=== PATIENT | male | born 1990 | race American Indian/Alaskan Native ===

== ENCOUNTER 2019-05-07 00:51 | Emergency (ER) | payer MEDICAID ==
--- NOTE | 2019-05-07 01:30 | Emergency Department Report ---
ED General Adult HPI - General Stated complaint: DIZZINESS Time Seen by Provider: 05/07/19 01:08 Source: patient, RN notes reviewed Limitations: No Limitations - History of Present Illness Initial comments: 18-year-old male with a past medical history of schizophrenia presents after being brought to emergency department by family after patient was found to be foaming at the mouth. Family states that patient is less responsive than his usual baseline as well. Patient had no falls or seizure per family. Them he states the patient is compliant with his Haldol and benztropine appendectomy. Patient has had no over those medications per the family as they state that they have the [address] His medications to him. Patient last feel the medications on April 10 where he had 30 pills, history in the bottle per mother. Patient per mother has had no new medications and father denies any illicit drug use of the patient. Patient has had no recent fever as well. Severity scale (0 -10): 0 - Related Data Home Medications Medication Instructions Recorded Confirmed Last Taken Benztropine 1 mg PO DAILY 05/07/19 05/07/19 05/06/19 Haloperidol 5 mg PO DAILY 05/07/19 05/07/19 05/06/19 Haloperidol 50 mg IM QMONTH 05/07/19 05/07/19 04/25/19 Allergies Allergy/AdvReac Type Severity Reaction Status Date / Time No Known Allergies Allergy Unverified 05/07/19 01:13 ED Review of Systems ROS: Stated complaint: DIZZINESS Other details as noted in HPI Comment: Unobtainable due to pts medical conditions ED Past Medical Hx - Medications Home Medications: Home Medications Medication Instructions Recorded Confirmed Last Taken Type Benztropine 1 mg PO DAILY 05/07/19 05/07/19 05/06/19 History Haloperidol 5 mg PO DAILY 05/07/19 05/07/19 05/06/19 History Haloperidol 50 mg IM QMONTH 05/07/19 05/07/19 04/25/19 History ED Physical Exam - General General appearance: other (responsive to voice ) - Head Head exam: Present: atraumatic, normocephalic - Eye Eye exam: Present: normal appearance - ENT ENT exam: Present: mucous membranes dry - Neck Neck exam: Present: normal inspection - Respiratory Respiratory exam: Present: normal lung sounds bilaterally. Absent: respiratory distress - Cardiovascular Cardiovascular Exam: Present: regular rate, normal rhythm. Absent: systolic murmur, diastolic murmur, rubs, gallop - GI/Abdominal GI/Abdominal exam: Present: soft, normal bowel sounds. Absent: distended, tenderness - Rectal Rectal exam: Present: deferred - Extremities Exam Extremities exam: Present: normal inspection - Back Exam Back exam: Present: normal inspection - Neurological Exam Neurological exam: Present: other - Expanded Neurological Exam Expanded Patient oriented to: Absent: person, place, time Cranial nerves: Gag Reflex: Normal Sensory exam: Upper Extremity Light Touch: Normal, Upper Extremity Pin Prick: Normal, Upper Extremity Temperature: Normal, UE 2 Point Discrimination: Normal, Lower Extremity Light Touch: Normal, Lower Extremity Pin Prick: Normal, Lower Extremity Temperature: Normal, LE 2 Point Discrimination: Normal Motor strength exam: RUE: 5, LUE: 5, RLE: 5, LLE: 5 Best Eye Response ([place]): (4) open spontaneously Best Motor Response ([place]): (6) obeys commands Best Verbal Response ([place]): (4) confused conversation [place] Total: 14 - Psychiatric Psychiatric exam: Present: normal affect, normal mood - Skin Skin exam: Present: warm, dry, intact, normal color. Absent: rash ED Course Vital Signs 05/07/19 05/07/19 05/07/19 00:58 01:01 01:02 Temperature 97.9 F 97.8 F Pulse Rate 78 94 H 92 H Respiratory 17 19 18 Rate Blood Pressure 115/77 115/77 Blood Pressure 115/77 [Right] O2 Sat by Pulse 96 97 97 Oximetry 05/07/19 05/07/19 05/07/19 01:31 01:45 02:00 Temperature Pulse Rate 88 104 H 101 H Respiratory 16 16 21 Rate Blood Pressure 120/79 134/83 133/92 Blood Pressure [Right] O2 Sat by Pulse 99 97 98 Oximetry 05/07/19 05/07/19 05/07/19 02:21 02:31 02:45 Temperature Pulse Rate 86 102 H 77 Respiratory 15 19 17 Rate Blood Pressure 133/92 133/92 133/92 Blood Pressure [Right] O2 Sat by Pulse 99 96 99 Oximetry 05/07/19 05/07/19 05/07/19 03:15 03:45 04:00 Temperature Pulse Rate 85 98 H 74 Respiratory 15 15 17 Rate Blood Pressure 125/83 116/91 120/79 Blood Pressure [Right] O2 Sat by Pulse 100 100 99 Oximetry 05/07/19 05/07/19 05/07/19 04:15 04:31 04:45 Temperature Pulse Rate 102 H 88 61 Respiratory 26 H 19 14 Rate Blood Pressure 120/79 120/79 141/91 Blood Pressure [Right] O2 Sat by Pulse 100 99 100 Oximetry 05/07/19 05/07/19 05:00 05:30 Temperature Pulse Rate 64 66 Respiratory 15 15 Rate Blood Pressure 138/89 141/84 Blood Pressure [Right] O2 Sat by Pulse 100 99 Oximetry ED Medical Decision Making - Lab Data Result diagrams: 05/07/19 01:46 05/07/19 01:46 - EKG Data EKG shows normal: sinus rhythm Rate: normal - Medical Decision Making Patient received IV fluid hydration while here in the emergency department. Case was discussed with poison control and stated to observe the patient for 6 hours. Patient reached a 6 hour observation time and currently is oriented to person place and time and is ambulatory. Family member states the patient is back at his baseline. Patient be discharged to follow up with PCP. - Differential Diagnosis Intracranial Bleed; Dehydration; Arryhtmia; Anemia Critical care attestation.: If time is entered above; I have spent that time in minutes in the direct care of this critically ill patient, excluding procedure time. ED Disposition Clinical Impression: Weakness Disposition: DC-01 TO HOME OR SELFCARE Is pt being admited?: No Does the pt Need Aspirin: No Condition: Stable Instructions: Weakness (ED) Referrals: PRIMARY CARE, [Primary Care Provider] - 3-5 Days Time of Disposition: 06:29 Print Language: KHMER
[2019-05-07] MEDS ORDERED: NACL 0.9% 1000 ML 1,000 ML IV ONE ×2 (01:33→01:45)
--- NOTE | 2019-05-07 02:00 | XRay Report ---
CHEST 1 VIEW 05/07/2019 1:42 AM INDICATION / CLINICAL INFORMATION: chest pain. COMPARISON: None available. FINDINGS: SUPPORT DEVICES: None. HEART / MEDIASTINUM: No significant abnormality. LUNGS / PLEURA: No significant pulmonary or pleural abnormality. No pneumothorax. ADDITIONAL FINDINGS: No significant additional findings. IMPRESSION: No acute findings. Signer Name: Abraham Hernandez MD Signed: 05/07/2019 1:56 AM Workstation Name: [id number]
[2019-05-07 02:17] LABS: Hematocrit 49.1 % (35.5-45.6); Hemoglobin 16.4 gm/dl (11.8-15.2); Mean Corpuscular HGB Conc 33 % (32-34); Mean Corpuscular Hemoglobin 31 pg (28-32); Mean Corpuscular Volume 92 fl (84-94); Platelet Count 179 K/mm3 (140-440); Red Blood Count 5.37 M/mm3 (3.65-5.03); Red Cell Distribution Width 13.8 % (13.2-15.2)
[2019-05-07 02:48] LABS: Alanine Aminotransferase 11 units/L (7-56); Albumin 4.7 g/dL (3.9-5); BUN/Creatinine Ratio 12; Blood Urea Nitrogen 12 mg/dL (9-20); Calcium 9.8 mg/dL (8.4-10.2); Hemolysis Index 20; Lipase 78 units/L (13-60)
--- NOTE | 2019-05-07 02:50 | Cat Scan Report ---
CT HEAD WITHOUT CONTRAST INDICATION : Altered mental status. Weakness. Dizziness.. TECHNIQUE: Axial, coronal and sagittal CT imaging was performed from the skull apex through the skul l base without contrast. All CT scans at this location are performed using CT dose reduction for ALA RA by means of automated exposure control. COMPARISON: None available. FINDINGS: Motion artifact limits this exam. PARENCHYMA: No mass, midline shift, hemorrhage, extraaxial collection or acute territorial infarctio n. VENTRICLES: Symmetric and normal in size. SOFT TISSUES: Soft tissues including the orbits appear normal. BONES: No acute osseous abnormality. SINUSES: No significant abnormality. ADDITIONAL FINDINGS: None. IMPRESSION: No acute abnormality. Signer Name: Abraham Hernandez MD Signed: 05/07/2019 2:45 AM Workstation Name: [id number]
[2019-05-07 06:06] VITALS: BP 141/84
[2019-05-07 06:56] LABS: Bilirubin,Urine NEG (Negative); Blood,Urine NEG (Negative); Color,Urine Straw (Yellow); Protein,Urine <15 mg/dL mg/dL (Negative); Urobilinogen,Urine < 2.0 mg/dL (<2.0)
[2019-05-07 07:05] LABS: Amphetamine Screen,Urine PRESUMPTIVE NEGATIVE; Benzodiazepines Screen,Urine PRESUMPTIVE NEGATIVE; Cannabinoid Screen,Urine PRESUMPTIVE NEGATIVE; Cocaine Screen,Urine PRESUMPTIVE NEGATIVE; Methadone Screen,Urine PRESUMPTIVE NEGATIVE; Opiate Screen,Urine PRESUMPTIVE NEGATIVE
== END 2019-05-07 06:38 | disposition home or self-care (01) ==
LOC: EDBD → ED 00:51
DX: R53.1 Weakness (principal); R42 Dizziness and giddiness; F20.9 Schizophrenia, unspecified; Z79.899 Other long term (current) drug therapy
CPT/HCPCS: 36415; 70450; 71045; 80053; 80307; 81001; 82550; 83690; 84484; 85027; 93005; 93010; 96360; 96361; 99284; J7030; 80320; G0480

== ENCOUNTER 2019-12-27 07:14 | Emergency (ER) | payer MEDICAID ==
--- NOTE | 2019-12-27 08:46 | Emergency Department Report ---
ED General Adult HPI - General Chief complaint: Anxiety Stated complaint: ANXIETY Time Seen by Provider: 12/27/19 08:19 Source: patient Mode of arrival: Ambulatory Limitations: No Limitations - History of Present Illness Initial comments: This a 29-year-old male with a past medical history of schizophrenia who presents the emergency department with a chief complaint of 2 panic attacks that occurred this morning. Patient reports he was at work when he took a drink and somebody yelled at him for drinking or drink and this caused him to have a panic attack. He states during the episode he reports he was scared and had rapid breathing. He reports this happened one other time when he was at [employer] a few days ago. Patient denies any suicidal or homicidal thoughts, denies any auditory visual hallucinations. He states he feels safe at home where he lives with his mother. He is currently on Haldol, haloperidol IM q. monthly and Cogentin. He denies any associated chest pain, shortness of breath, fever, chills, night sweats, headache, dizziness, blurry vision, nausea, vomiting, diarrhea or any other associated symptoms. - Related Data Home Medications Medication Instructions Recorded Confirmed Last Taken Benztropine 1 mg PO DAILY 05/07/19 05/07/19 05/06/19 Haloperidol 5 mg PO DAILY 05/07/19 05/07/19 05/06/19 Haloperidol 50 mg IM QMONTH 05/07/19 05/07/19 04/25/19 Previous Rx's Medication Instructions Recorded Last Taken Type hydrOXYzine PAMOATE [Vistaril] 25 mg PO Q6HR PRN #12 capsule 12/27/19 Unknown Rx Allergies Allergy/AdvReac Type Severity Reaction Status Date / Time No Known Allergies Allergy Unverified 05/07/19 01:13 ED Review of Systems ROS: Stated complaint: ANXIETY Other details as noted in HPI Comment: All other systems reviewed and negative Constitutional: denies: chills, fever Eyes: denies: eye pain, eye discharge, vision change ENT: denies: ear pain, throat pain Respiratory: denies: cough, shortness of breath, wheezing Cardiovascular: denies: chest pain, palpitations Endocrine: no symptoms reported Gastrointestinal: denies: abdominal pain, nausea, diarrhea Genitourinary: denies: urgency, dysuria Musculoskeletal: denies: back pain, joint swelling, arthralgia Skin: denies: rash, lesions Neurological: denies: headache, weakness, paresthesias Psychiatric: as per HPI, anxiety. denies: depression, auditory hallucinations, visual hallucinations, homicidal thoughts, suicidal thoughts Hematological/Lymphatic: denies: easy bleeding, easy bruising ED Past Medical Hx - Past Medical History Previous Medical History?: Yes Hx Psychiatric Treatment: Yes (schizophrenia) - Surgical History Past Surgical History?: Yes Additional Surgical History: Vocal - Social History Smoking Status: Never Smoker Substance Use Type: None - Medications Home Medications: Home Medications Medication Instructions Recorded Confirmed Last Taken Type Benztropine 1 mg PO DAILY 05/07/19 05/07/19 05/06/19 History Haloperidol 5 mg PO DAILY 05/07/19 05/07/19 05/06/19 History Haloperidol 50 mg IM QMONTH 05/07/19 05/07/19 04/25/19 History hydrOXYzine PAMOATE [Vistaril] 25 mg PO Q6HR PRN #12 capsule 12/27/19 Unknown Rx ED Physical Exam - General Limitations: No Limitations General appearance: alert, in no apparent distress - Head Head exam: Present: atraumatic, normocephalic - Eye Eye exam: Present: normal appearance, PERRL, EOMI Pupils: Present: normal accommodation - ENT ENT exam: Present: normal exam, normal orophraynx, mucous membranes moist. Absent: mucous membranes dry, TM's normal bilaterally - Neck Neck exam: Present: normal inspection, full ROM. Absent: tenderness, meningismus - Respiratory Respiratory exam: Present: normal lung sounds bilaterally. Absent: respiratory distress, wheezes, rales, rhonchi, stridor - Cardiovascular Cardiovascular Exam: Present: regular rate, normal rhythm, tachycardia. Absent: systolic murmur, diastolic murmur, rubs, gallop - GI/Abdominal GI/Abdominal exam: Present: soft, normal bowel sounds. Absent: distended, tenderness, guarding, rebound, rigid - Rectal Rectal exam: Present: deferred - Extremities Exam Extremities exam: Present: normal inspection - Back Exam Back exam: Present: normal inspection - Neurological Exam Neurological exam: Present: alert, oriented X3 - Psychiatric Psychiatric exam: Present: normal affect, normal mood - Skin Skin exam: Present: warm, dry, intact, normal color. Absent: rash ED Course Vital Signs 03/11/20 07:43 Temperature 97.8 F Pulse Rate 128 H Respiratory 20 Rate Blood Pressure 140/91 O2 Sat by Pulse 97 Oximetry ED Medical Decision Making - Medical Decision Making Patient is well-appearing, nontoxic in no acute distress. Talking on the phone to a friend of his when I entered the room. His vitals initially show tachycardia however on my exam his heart rate considerably slowed. Educated the patient about grounding techniques to help with his anxiety and will prescribe Vistaril as needed for his anxiety. Recommend he return to emerge department any change or worsening symptoms and follow-up with his primary care doctor. He verbalized understand the diagnosis, treatment plan and follow-up instructions and all his questions were answered. - Differential Diagnosis Anxiety, depression, schizophrenia Critical care attestation.: If time is entered above; I have spent that time in minutes in the direct care of this critically ill patient, excluding procedure time. ED Disposition Clinical Impression: Panic attack as reaction to stress Disposition: DC-01 TO HOME OR SELFCARE Is pt being admited?: No Condition: Stable Instructions: Anxiety (ED) Prescriptions: hydrOXYzine PAMOATE [Vistaril] 25 mg PO Q6HR PRN #12 capsule PRN Reason: Anxiety Referrals: PRIMARY CARE, [Primary Care Provider] - 3-5 Days Time of Disposition: 08:45
[2019-12-27] MEDS ORDERED: hydrOXYzine PAMOATE 25 MG CAP PO ONE (08:55)
[2019-12-27 09:09] VITALS: BP 129/60
== END 2019-12-27 09:09 | disposition home or self-care (01) ==
LOC: ED 07:14
DX: F43.0 Acute stress reaction (principal); F20.9 Schizophrenia, unspecified; Z98.890 Other specified postprocedural states; Z79.899 Other long term (current) drug therapy
CPT/HCPCS: 99283; Q0177

== ENCOUNTER 2021-05-03 22:55 | Emergency (ER) | payer MEDICAID ==
[2021-05-03 23:36] VITALS: BP 123/74
[2021-05-04 00:20] LABS: Basophils % (Auto) 0.1 % (0.0-1.8); Eosinophils % (Auto) 0.2 % (0.0-4.3); Hematocrit 52.8 % (35.5-45.6); Hemoglobin 17.5 gm/dl (11.8-15.2); Lymphocytes # (Auto) 1.3 K/mm3 (1.2-5.4); Lymphocytes % (Auto) 9.2 % (13.4-35.0); Mean Corpuscular HGB Conc 33 % (32-34); Mean Corpuscular Volume 91 fl (84-94); Monocytes # (Auto) 0.6 K/mm3 (0.0-0.8); Monocytes % (Auto) 4.2 % (0.0-7.3); Platelet Count 175 K/mm3 (140-440); Red Cell Distribution Width 13.8 % (13.2-15.2)
[2021-05-04 00:36] LABS: Alanine Aminotransferase 13 units/L (7-56); Albumin 5.1 g/dL (3.9-5); BUN/Creatinine Ratio 14; Blood Urea Nitrogen 14 mg/dL (9-20); Calcium 9.7 mg/dL (8.4-10.2); Hemolysis Index 21
[2021-05-04] MEDS ORDERED: DICYCLOMINE 20 MG TAB PO ONE (00:40)
[2021-05-04] MEDS ORDERED: ONDANSETRON 4 MG ODT TAB PO ONE (00:40)
[2021-05-04] MEDS ORDERED: FAMOTIDINE 20 MG TAB PO ONE (00:40)
--- NOTE | 2021-05-04 01:08 | Emergency Department Report ---
ED N/V/D HPI - General Chief complaint: Abdominal Pain Stated complaint: ABD PAIN Source: patient Mode of arrival: Ambulatory Limitations: No Limitations - History of Present Illness Initial comments: Patient is a 30-year-old -[place] male with a history of anxiety, depre ssion, bipolar disorder and paranoid schizophrenia who presents to the ED with complaint of acute onset persistent nausea and vomiting and mild epigastric pain for the last 2 hours after eating certain food. Patient states that he has had up to 3 episodes of nausea and vomiting and that the pain in the epigastric area got worse with the nausea and vomiting. Patient states that no one else at home is had similar symptoms. Patient denies diarrhea, chest pain, shortness of breath, fever, chills, cough, dysuria, urinary frequency and urgency, testicular pain, suicidal or homicidal ideation or hallucinations. MD complaint: nausea, vomiting, abdominal pain (Epigastric pain) -: Sudden, hour(s) (3) Description of Vomiting: food contents Associated Abdominal Pain: Yes (Epigastric pain) Location: epigastric Radiation: none Severity: mild Pain Scale: 2 Quality: cramping, dull Consistency: intermittent Improves with: none Worsens with: eating, vomiting Context: possible food poisoning Associated Symptoms: denies other symptoms, loss of appetite, nausea/vomiting. denies: myalgias, chest pain, cough, headaches, malaise, rash, dysuria, shortne ss of breath, syncope, other - Related Data Home Medications Medication Instructions Recorded Confirmed Last Taken Benztropine 1 mg PO DAILY 05/07/19 05/07/19 05/06/19 Haloperidol 5 mg PO DAILY 05/07/19 05/07/19 05/06/19 Haloperidol 50 mg IM QMONTH 05/07/19 05/07/19 04/25/19 Previous Rx's Medication Instructions Recorded Last Taken Type hydrOXYzine PAMOATE [Vistaril] 25 mg PO Q6HR PRN #12 capsule 12/27/19 Unknown Rx Dicyclomine [Bentyl] 20 mg PO Q6H PRN #20 tablet 05/04/21 Unknown Rx Famotidine [Pepcid] 20 mg PO BID #20 tablet 05/04/21 Unknown Rx Ondansetron [Zofran Odt] 4 mg PO Q8HR PRN #15 tab.rapdis 05/04/21 Unknown Rx Allergies Allergy/AdvReac Type Severity Reaction Status Date / Time No Known Allergies Allergy Unverified 05/07/19 01:13 ED Review of Systems ROS: Stated complaint: ABD PAIN Other details as noted in HPI Constitutional: denies: chills, fever Eyes: denies: eye pain, eye discharge, vision change ENT: denies: ear pain, throat pain Respiratory: denies: cough, shortness of breath, wheezing Cardiovascular: denies: chest pain, palpitations Endocrine: no symptoms reported Gastrointestinal: abdominal pain (Epigastric pain), nausea, vomiting. denies: diarrhea Genitourinary: denies: urgency, dysuria Musculoskeletal: denies: back pain, joint swelling, arthralgia Skin: denies: rash, lesions Neurological: denies: headache, weakness, paresthesias Psychiatric: denies: anxiety, depression Hematological/Lymphatic: denies: easy bleeding, easy bruising ED Past Medical Hx - Past Medical History Previous Medical History?: Yes Hx Psychiatric Treatment: Yes (schizophrenia, bipolar, depression) - Surgical History Past Surgical History?: Yes Additional Surgical History: Vocal - Social History Smoking Status: Never Smoker Substance Use Type: None - Medications Home Medications: Home Medications Medication Instructions Recorded Confirmed Last Taken Type Benztropine 1 mg PO DAILY 05/07/19 05/07/19 05/06/19 History Haloperidol 5 mg PO DAILY 05/07/19 05/07/19 05/06/19 History Haloperidol 50 mg IM QMONTH 05/07/19 05/07/19 04/25/19 History hydrOXYzine PAMOATE [Vistaril] 25 mg PO Q6HR PRN #12 capsule 12/27/19 Unknown Rx Dicyclomine [Bentyl] 20 mg PO Q6H PRN #20 tablet 05/04/21 Unknown Rx Famotidine [Pepcid] 20 mg PO BID #20 tablet 05/04/21 Unknown Rx Ondansetron [Zofran Odt] 4 mg PO Q8HR PRN #15 tab.rapdis 05/04/21 Unknown Rx ED Physical Exam - General Limitations: No Limitations General appearance: alert, in no apparent distress - Head Head exam: Present: atraumatic, normocephalic, normal inspection - Eye Eye exam: Present: normal appearance, PERRL, EOMI Pupils: Present: normal accommodation - ENT ENT exam: Present: normal exam, normal orophraynx, mucous membranes moist, TM's normal bilaterally, normal external ear exam - Neck Neck exam: Present: normal inspection, full ROM - Respiratory Respiratory exam: Present: normal lung sounds bilaterally. Absent: respiratory distress, wheezes, rales, rhonchi, chest wall tenderness, accessory muscle use, decreased breath sounds - Cardiovascular Cardiovascular Exam: Present: regular rate, normal rhythm, normal heart sounds. Absent: systolic murmur, diastolic murmur, rubs, gallop - GI/Abdominal GI/Abdominal exam: Present: soft, normal bowel sounds. Absent: distended, tenderness, guarding, rebound, hyperactive bowel sounds, hypoactive bowel sound s, organomegaly - Extremities Exam Extremities exam: Present: normal inspection, full ROM, normal capillary refill - Back Exam Back exam: Present: normal inspection, full ROM. Absent: tenderness, CVA tenderness (R), CVA tenderness (L), muscle spasm, paraspinal tenderness, vertebral tenderness - Neurological Exam Neurological exam: Present: alert, oriented X3, CN II-XII intact, normal gait, reflexes normal - Psychiatric Psychiatric exam: Present: normal affect, normal mood - Skin Skin exam: Present: warm, dry, intact, normal color. Absent: rash ED Course Vital Signs 05/03/21 23:33 Temperature 98.2 F Pulse Rate 95 H Respiratory 16 Rate Blood Pressure 123/74 [Left] O2 Sat by Pulse 99 Oximetry ED Medical Decision Making - Lab Data Result diagrams: 05/03/21 23:47 05/03/21 23:47 - Medical Decision Making This is a 30-year-old -[place] male with a history of anxiety, depression, bipolar disorder and paranoid schizophrenia who presents to the ED with complaint of acute onset persistent nausea and vomiting and mild epigastric pain for the last 2 hours after eating certain food. Patient states that he has had up to 3 episodes of nausea and vomiting and that the pain in the epigastric area got worse with the nausea and vomiting. Patient states that no one else at home is had similar symptoms. In the ED, patient is alert and oriented x3 and is not in any distress. Lab test results were reviewed and torsten wed acute hyperglycemia 146 mg/dL and acute leukocytosis of 13,800. The acute leukocytosis is likely due to intractable nausea and vomiting episodes. Physical exam is unremarkable. Patient symptoms are likely due to suspected gastroenteritis, gastritis, GERD or viral syndrome. Patient was treated for nausea and vomiting in the ED and also given antacids and spasmodics in the ED. On reevaluation, patient felt better, patient has not had any nausea or vomiting in the ED. Patient was therefore discharged home on medications and advised to follow-up with his primary care physician in 5 to 7 days for reevaluation. Patient advised return to the ED immediately if symptoms get worse. - Differential Diagnosis Gastroenteritis; gastritis; GERD; Critical care attestation.: If time is entered above; I have spent that time in minutes in the direct care of this critically ill patient, excluding procedure time. ED Disposition Clinical Impression: Viral gastroenteritis, Nausea and vomiting in adult patient Disposition: TO HOME OR SELFCARE Is pt being admited?: No Does the pt Need Aspirin: No Condition: Stable Instructions: Viral Gastroenteritis, Adult, [id number], Nausea and Vomiting, Adult, [id number] Additional Instructions: Maintain a clear liquid diet for 12 to 24 hours, take medication as needed for nausea and vomiting and for pain. Drink plenty of fluids and follow-up with your primary care physician in 5 to 7 days for reevaluation. Return to the ED immediately if symptoms get worse. Prescriptions: Dicyclomine [Bentyl] 20 mg PO Q6H PRN #20 tablet PRN Reason: Abdominal pain Famotidine [Pepcid] 20 mg PO BID #20 tablet Ondansetron [Zofran Odt] 4 mg PO Q8HR PRN #15 tab.rapdis PRN Reason: Nausea Referrals: [facility] [Provider Group] - 3-5 Days Time of Disposition: :09 Print Language: ARABIC
== END 2021-05-04 01:50 | disposition home or self-care (01) ==
LOC: ED 22:55
DX: A08.4 Viral intestinal infection, unspecified (principal); R11.2 Nausea with vomiting, unspecified; F20.9 Schizophrenia, unspecified; Z98.890 Other specified postprocedural states; Z79.899 Other long term (current) drug therapy
CPT/HCPCS: 36415; 80053; 83690; 85025